=== PATIENT | female | born 1935 | race Caucasian/White ===

== ENCOUNTER 2017-05-03 00:41 | Inpatient (IN) | payer MEDICARE ==
[~2017-05-03] VITALS: Ht 157.5 cm; Wt 70.9 kg
[~2017-05-03 00:41] MED LIST: AMLODIPINE BESY10 MG PO; AMLODIPINE-BEN1 EACH PO; ASPIRIN81 M1 PO; CLONIDINE HCL0.1 MG PO; CLONIDINE HCL0.2 MG PO; DIGOXIN125 MCG PO; GLIMEPIRIDE2 MG PO; HYDROCHLOROTHIA25 MG PO; ISOSORBIDE DINI30 MG PO; JANUVIA100 MG PO; LEVAQUIN250 MG PO; LOSARTAN POTASS25 MG PO; METFORMIN HCL850 MG PO; METOPROLOL TART50 MG PO; PANTOPRAZOLE SO40 MG PO; PRAVASTATIN SOD40 MG PO; SUCRALFATE PO; XARELTO15 MG PO; XOPENEX HFA15 GM INH
[2017-05-03 01:19] LABS: BASOPHILS % 0.3 % (0.0-1.0); EOSINOPHILS # (AUTO) 0.1 (0.0-0.4); EOSINOPHILS % 1.1 % (0.0-6.0); HEMATOCRIT 36.2 % (34.2-44.1); HEMOGLOBIN 11.8 g/dL (12.0-16.0); LYMPHOCYTES # (AUTO) 1.5 (1.0-3.2); LYMPHOCYTES % 20.7 % (18.0-39.1); MEAN CORPUSCULAR HEMOGLOBIN 27.2 pg (28-32); MEAN CORPUSCULAR HGB CONC 32.6 g/dL (31-35); MEAN CORPUSCULAR VOLUME 83.4 fL (81-99); MONOCYTES # (AUTO) 0.8 (0.2-0.8); MONOCYTES % 10.5 % (4.4-11.3); NEUTROPHILS # (AUTO) 4.8 (2.1-6.9); PLATELET COUNT 189 x10e3/uL (140-360); RED BLOOD COUNT 4.34 x10e6/uL (3.6-5.1); RED CELL DISTRIBUTION WIDTH 14.3 % (11.7-14.4)
[2017-05-03] MEDS ORDERED: ISOSORBIDE MONO30 MG PO (01:24)
[2017-05-03] MEDS ORDERED: CLONIDINE HCL0.2 MG PO (01:24)
[2017-05-03] MEDS ORDERED: DIGOXIN125 MCG PO (01:24)
[2017-05-03] MEDS ORDERED: NOVOLOG100 UNITS1 SC (01:24)
[2017-05-03] MEDS ORDERED: LOSARTAN POTASS25 MG PO (01:24)
[2017-05-03] MEDS ORDERED: PANTOPRAZOLE SO40 MG PO (01:24)
[2017-05-03] MEDS ORDERED: PRAVASTATIN SOD40 MG PO (01:24)
[2017-05-03] MEDS ORDERED: GLIMEPIRIDE2 MG PO (01:24)
[2017-05-03] MEDS ORDERED: ASPIRIN EC81 MG PO (01:24)
[2017-05-03] MEDS ORDERED: AMLODIPINE BESY10 MG PO (01:24)
[2017-05-03] MEDS ORDERED: JANUVIA100 MG PO (01:24)
[2017-05-03] MEDS ORDERED: HYDROCHLOROTHIA25 MG PO (01:24)
[2017-05-03] MEDS ORDERED: XARELTO10 MG PO (01:24)
[2017-05-03] MEDS ORDERED: METOPROLOL TART50 MG PO (01:24)
[2017-05-03 01:28] LABS: INR 1.57; PROTHROMBIN TIME 19.6 seconds (11.9-14.5)
[2017-05-03 01:29] LABS: PARTIAL THROMBOPLASTIN TIME 46.6 seconds (23.8-35.5)
[2017-05-03] MEDS ORDERED: ALBUTEROL/IPRATROPIUM 3 ML NEB NEB ONE (01:30)
[2017-05-03 01:40] LABS: CREATINE KINASE MB 1.1 ng/mL (0.00-5.00)
--- NOTE | 2017-05-03 01:44 | Diagnostic Imaging Report ---
EXAM: CHEST SINGLE (PORTABLE), AP 1 view ORDER DATE: 05/03/2017 1:08 AM Time stamp on exam: 0130 hours INDICATION: Shortness of breath, cough COMPARISON: None FINDINGS: LINES/TUBES: Left approach cardiac device. Median sternotomy wires. LUNGS: Vascular congestion and early edema. PLEURA: No effusions or pneumothorax. HEART AND MEDIASTINUM: Cardiomegaly. BONES AND SOFT TISSUES: No acute findings. Questionable hiatal hernia. IMPRESSION: Cardiomegaly, vascular congestion and early edema. Signed by: Dr. Farida Ford M.D. on 05/03/2017 1:41 AM
[2017-05-03 01:47] LABS: ALBUMIN 3.4 g/dL (3.5-5.0); ALBUMIN/GLOBULIN RATIO 0.8 (0.8-2.0); ANION GAP 13.3 mmol/L (8-16); CALCIUM 8.4 mg/dL (8.4-10.2); CREATININE, SERUM 1.25 mg/dL (0.57-1.11); POTASSIUM 3.3 mmol/L (3.5-5.1)
[2017-05-03] MEDS ORDERED: FUROSEMIDE INJ 10 MG/ML 2 ML VIAL IV ONE (02:00)
[2017-05-03] MEDS ORDERED: POTASSIUM CHLORIDE 20MEQ/15ML UDC ONE (02:27)
[2017-05-03] MEDS ORDERED: POTASSIUM CHLORIDE 20MEQ/15ML UDC PO ONE (02:30)
[2017-05-03 02:42] LABS: BILIRUBIN,URINE NEGATIVE (NEGATIVE); KETONES,URINE NEGATIVE (NEGATIVE); LEUKOCYTE ESTERASE ,URINE TRACE (NEGATIVE); NITRITE,URINE NEGATIVE (NEGATIVE); URINE UROBILINOGEN 0.2 mg/dL (0.2 - 1)
[2017-05-03 02:43] LABS: CLARITY,URINE CLEAR (CLEAR); COLOR,URINE YELLOW (YELLOW); PROTEIN,URINE DIPSTICK TRACE (NEGATIVE)
[2017-05-03 02:50] LABS: BACTERIA,URINE FEW /HPF; EPITHELIAL CELLS,URINE FEW /LPF
--- OUTSIDE RECORDS SUMMARY | 2017-05-03 03:12 | XMS REPORT ---
Author Author [facility] Address Unknown Phone Unavailable Care Team Providers Care Assistant Analyst Name Role Phone DEBRA ANDERSON Unavailable Unavailable Problems This patient has no known problems. Allergies, Adverse Reactions, Alerts This patient has no known allergies or adverse reactions. Medications This patient has no known medications. Results Test Description Test Time Test Comments Text Results Atomic Results Result Comments CHEST SINGLE (PORTABLE) [facility] [address] [address] Patient Name: VERONICA KHAN MR #: [id number] : 1935 Age/Sex: 82/F Req #: [id number] Adm Physician: Ordered by: DEBRA ANDERSON MD Report #: [id number] Location: ER Room/Bed: _ Procedure: [id number] DX/CHEST SINGLE (PORTABLE) Exam Date: 05/03/17 Exam Time: 0125 REPORT STATUS: Signed EXAM: CHEST SINGLE (PORTABLE), AP 1 view ORDER DATE: 05/03/2017 1:08 AM Time stamp on exam: 0130 hours INDICATION: Shortness of breath, cough COMPARISON: None FINDINGS: LINES/TUBES: Left approach cardiac device. Median sternotomy wires. LUNGS: Vascular congestion and early edema. PLEURA: No effusions or pneumothorax. HEART AND MEDIASTINUM: Cardiomegaly. BONES AND SOFT TISSUES: No acute findings. Questionable hiatal hernia. IMPRESSION : Cardiomegaly, vascular congestion and early edema. Signed by: Dr. Luis Antonio Ford M.D. on 05/03/2017 1:41 AM Dictated By: LUIS ANTONIO FORD MD 0 Transcribed By: CHELSEY on 05/03/17140 COPY TO: DEBRA ANDERSON MD
[2017-05-03] MEDS: ALBUTEROL/IPRATROPIUM 3 ML NEB NEB SCH ×5 (04:00→23:45)
[2017-05-03] MEDS ORDERED: METHYLPREDNISOLONE SOD SUCC 125 MG/2ML VIAL IV SCH (09:00)
[2017-05-03] MEDS: LISINOPRIL 10 MG TAB PO SCH (10:01)
[2017-05-03] MEDS: FUROSEMIDE INJ 10 MG/ML 4 ML VIAL IV SCH ×2 (10:05→17:08)
[2017-05-03] MEDS: LEVOFLOXACIN 500MG/D5W 100ML 100 ML IV SCH (10:15)
[2017-05-03 16:53] LABS: CREATINE KINASE MB 1.2 ng/mL (0.00-5.00)
--- NOTE | 2017-05-03 20:06 | History and Physical ---
An 82-year-old female comes in with shortness of breath. HISTORY OF PRESENT ILLNESS: Ms. Loya is an 82-year-old lady with a history of congestive heart failure. She was in her usual state of health until one month prior to admission the patient started off with some upper respiratory symptoms. She was seen in the office and was given antibiotic and some steroids, but 2 days prior to admission the patient's dyspnea was moderate. She had quite a lot of wheezing and dyspnea on exertion. She came into the emergency room and was found to have congestive heart failure and bronchitis. PAST MEDICAL HISTORY: History of diabetes mellitus, history of hypertension, history of coronary artery disease, history of hypothyroidism, history of hypertension and history of chronic osteoarthritis. HOME MEDICATIONS: Acetaminophen with codeine, aspirin 81 mg, 75 mg, fenofibrate 67 mg, Lasix 20 mg daily, insulin 52 units at night time, levothyroxine 50 mcg daily, lovastatin 40 mg at night time, meclizine as needed for vertigo, metoprolol 25 mg 1/2 tablet twice a day, temazepam at night time for sleep and tramadol 50 mg q.6 h. p.r.n. 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 SOCIAL HISTORY: No ETOH, no IV drug abuse. She lives by herself and primary caretakers are her children. REVIEW OF SYSTEMS: Negative for chest pain. Positive for shortness of breath. No nausea, vomiting, diarrhea, no constipation, no rectal bleeding, no hematochezia, no hematemesis, no blurry vision. No muscle aches or body aches. No skin problems or rashes. PHYSICAL EXAMINATION VITAL SIGNS: Temperature 97.1, pulse 60, respiratory rate 20, blood pressure 190/79, O2 at 2 liters 98%. GENERAL: The patient is alert and oriented x3. HEENT: Normocephalic, atraumatic. CVS: S1 and S2 normal. Regular rate and rhythm. LUNGS: Positive for bilateral wheezes. ABDOMEN: Nontender, nondistended. EXTREMITIES: Positive for edema. LABORATORY DATA: Initial white count 5.49, hemoglobin 12.5, hematocrit 38.5. Chemistry: Sodium 133, potassium 4.9 with a creatinine of 1.3 for estimated GFR of 50. BNP was 353.2. Coags were normal. Urinalysis was also negative. Serology: Influenza negative. IMAGING: Showed chest x-ray with central pulmonary venous congestion with mild bilateral interstitial edema. ASSESSMENT 1. Congestive heart failure. 2. Bronchitis with failed outpatient treatment. PLAN: Start on IV Lasix. The patient has been given Lasix IV 20 mg twice a day, and will continue with that. Will give her ipratropium and albuterol, which has been restarted. Replaced her home medications and home O2 and also breathing treatment. Further recommendations depending on clinical course. Will continue monitoring the patient and possible discharge in 1-2 days depending on her clinical outcome. Job#: [id number]
[2017-05-03 21:00] VITALS: BP 133/67
[2017-05-03] MEDS ORDERED: DEXTROSE 50% SYRINGE 50 ML IV PRN (21:45)
[2017-05-03 21:46] VITALS: BP 133/67
[2017-05-03] MEDS: INSULIN LISPRO 100 UNIT/1 ML 3ML VIAL SQ SCH ×2 (22:30→23:45)
[2017-05-04] VITALS (7 sets, daily range): BP systolic 104–175; BP diastolic 61–77
[2017-05-04] MEDS: ALBUTEROL/IPRATROPIUM 3 ML NEB NEB SCH ×6 (03:35→23:12)
[2017-05-04] MEDS: INSULIN LISPRO 100 UNIT/1 ML 3ML VIAL SQ SCH ×5 (07:30→21:30)
[2017-05-04] MEDS ORDERED: SODIUM CHLORIDE 0.9% 250ML 250 ML ONE (08:39)
[2017-05-04] MEDS ORDERED: NON-FORMULARY MEDICATION (Aspirin 81 MG) PO SCH (09:00)
[2017-05-04] MEDS: ASPIRIN 81 MG ENTERIC COATED PO SCH (09:58)
[2017-05-04] MEDS: GLIMEPIRIDE 2 MG TAB PO SCH ×2 (09:58→17:12)
[2017-05-04] MEDS: CLONIDINE HCL 0.2 MG TAB PO SCH ×2 (09:58→17:12)
[2017-05-04] MEDS: LOSARTAN POTASSIUM 25 MG TAB PO SCH ×2 (09:58→17:13)
[2017-05-04] MEDS: LEVOFLOXACIN 500MG/D5W 100ML 100 ML IV SCH (09:58)
[2017-05-04] MEDS: FUROSEMIDE INJ 10 MG/ML 4 ML VIAL IV SCH ×2 (09:58→17:12)
[2017-05-04] MEDS: RIVAROXABAN 15 MG TABLET PO SCH (09:59)
[2017-05-04] MEDS: HYDROCHLOROTHIAZIDE 25 MG TAB PO SCH (09:59)
[2017-05-04] MEDS: PANTOPRAZOLE SOD 40 MG TABEC PO SCH ×2 (09:59→17:13)
[2017-05-04] MEDS: LISINOPRIL 10 MG TAB PO SCH (09:59)
[2017-05-04] MEDS: SITAGLIPTIN 100 MG TAB PO SCH (09:59)
[2017-05-04] MEDS: DIGOXIN 0.125 MG TAB PO SCH (10:00)
[2017-05-04] MEDS: AMLODIPINE BESYLATE 10 MG TAB PO SCH (10:00)
[2017-05-04] MEDS: ISOSORBIDE MONONITRATE 30 MG TAB CR PO SCH (10:19)
[2017-05-04] MEDS: METOPROLOL TARTRATE 50 MG TAB PO SCH ×2 (10:20→17:13)
[2017-05-04] MEDS: METRONIDAZOLE 500MG/NS 100ML 100 ML IV SCH ×2 (14:22→21:30)
[2017-05-04] MEDS: SIMVASTATIN 20 MG TAB PO SCH (21:29)
[2017-05-04] MEDS: DICYCLOMINE HCL 10 MG CAP PO PRN (22:37)
[2017-05-05] VITALS: BP 110/73
[2017-05-05] MEDS: ALBUTEROL/IPRATROPIUM 3 ML NEB NEB SCH ×6 (03:15→23:12)
[2017-05-05 04:00] VITALS: BP 131/64
[2017-05-05] MEDS: METRONIDAZOLE 500MG/NS 100ML 100 ML IV SCH ×3 (05:58→21:43)
[2017-05-05 06:10] LABS: BASOPHILS % 0.1 % (0.0-1.0); EOSINOPHILS % 0.1 % (0.0-6.0); HEMATOCRIT 40.1 % (34.2-44.1); HEMOGLOBIN 13.1 g/dL (12.0-16.0); LYMPHOCYTES # (AUTO) 2.1 (1.0-3.2); LYMPHOCYTES % 12.7 % (18.0-39.1); MEAN CORPUSCULAR HEMOGLOBIN 26.8 pg (28-32); MEAN CORPUSCULAR HGB CONC 32.7 g/dL (31-35); MONOCYTES # (AUTO) 1.3 (0.2-0.8); MONOCYTES % 7.8 % (4.4-11.3); NEUTROPHILS # (AUTO) 12.7 (2.1-6.9); NEUTROPHILS % 78.9 % (38.7-80.0); PLATELET COUNT 256 x10e3/uL (140-360); RED BLOOD COUNT 4.89 x10e6/uL (3.6-5.1); RED CELL DISTRIBUTION WIDTH 14.3 % (11.7-14.4)
[2017-05-05 06:38] LABS: ANION GAP 15.4 mmol/L (8-16); CALCIUM 8.7 mg/dL (8.4-10.2); CREATININE, SERUM 1.54 mg/dL (0.57-1.11)
[2017-05-05 06:44] LABS: POTASSIUM 2.4 mmol/L (3.5-5.1)
[2017-05-05] MEDS: INSULIN LISPRO 100 UNIT/1 ML 3ML VIAL SQ SCH ×5 (07:30→21:00)
[2017-05-05] MEDS ORDERED: POTASSIUM CHLORIDE 20 MEQ TAB CR PO STA (07:47)
[2017-05-05 08:00] VITALS: BP 123/62
[2017-05-05] MEDS ORDERED: POTASSIUM CHLORIDE 20MEQ/100ML 200 ML IV ONE (08:00)
[2017-05-05 08:08] VITALS: BP 123/62
[2017-05-05] MEDS: GLIMEPIRIDE 2 MG TAB PO SCH ×2 (09:50→17:10)
[2017-05-05] MEDS: ASPIRIN 81 MG ENTERIC COATED PO SCH (09:50)
[2017-05-05] MEDS: LEVOFLOXACIN 500MG/D5W 100ML 100 ML IV SCH (09:50)
[2017-05-05] MEDS: ISOSORBIDE MONONITRATE 30 MG TAB CR PO SCH (09:51)
[2017-05-05] MEDS: CLONIDINE HCL 0.2 MG TAB PO SCH ×2 (09:51→17:00)
[2017-05-05] MEDS: HYDROCHLOROTHIAZIDE 25 MG TAB PO SCH (09:51)
[2017-05-05] MEDS: LOSARTAN POTASSIUM 25 MG TAB PO SCH ×2 (09:51→17:00)
[2017-05-05] MEDS: SITAGLIPTIN 100 MG TAB PO SCH (09:52)
[2017-05-05] MEDS: FUROSEMIDE 40 MG TAB PO SCH (09:52)
[2017-05-05] MEDS: DIGOXIN 0.125 MG TAB PO SCH (09:52)
[2017-05-05] MEDS: AMLODIPINE BESYLATE 10 MG TAB PO SCH (09:53)
[2017-05-05] MEDS: METOPROLOL TARTRATE 50 MG TAB PO SCH ×2 (09:53→17:00)
[2017-05-05] MEDS: RIVAROXABAN 15 MG TABLET PO SCH (09:54)
[2017-05-05] MEDS: PANTOPRAZOLE SOD 40 MG TABEC PO SCH ×2 (09:54→17:12)
[2017-05-05] MEDS: LISINOPRIL 10 MG TAB PO SCH (09:54)
[2017-05-05] MEDS ORDERED: CHLORASEPTIC SPRAY 177 ML BTL MM PRN (11:30)
[2017-05-05 12:37] VITALS: BP 106/55
[2017-05-05 16:33] VITALS: BP 103/53
[2017-05-05] MEDS: SIMVASTATIN 20 MG TAB PO SCH (21:43)
[2017-05-06] MEDS: ALBUTEROL/IPRATROPIUM 3 ML NEB NEB SCH ×6 (03:05→23:20)
[2017-05-06] MEDS: METRONIDAZOLE 500MG/NS 100ML 100 ML IV SCH ×3 (05:55→21:20)
[2017-05-06 06:06] LABS: BASOPHILS % 0.2 % (0.0-1.0); EOSINOPHILS % 0.1 % (0.0-6.0); HEMATOCRIT 37.5 % (34.2-44.1); HEMOGLOBIN 12.1 g/dL (12.0-16.0); LYMPHOCYTES # (AUTO) 1.3 (1.0-3.2); LYMPHOCYTES % 10.9 % (18.0-39.1); MEAN CORPUSCULAR HEMOGLOBIN 26.9 pg (28-32); MEAN CORPUSCULAR HGB CONC 32.3 g/dL (31-35); MEAN CORPUSCULAR VOLUME 83.5 fL (81-99); MONOCYTES % 8.1 % (4.4-11.3); NEUTROPHILS # (AUTO) 9.6 (2.1-6.9); NEUTROPHILS % 80.1 % (38.7-80.0); PLATELET COUNT 245 x10e3/uL (140-360); RED BLOOD COUNT 4.49 x10e6/uL (3.6-5.1); RED CELL DISTRIBUTION WIDTH 14.5 % (11.7-14.4)
[2017-05-06 06:35] LABS: ANION GAP 16.9 mmol/L (8-16); CALCIUM 8.7 mg/dL (8.4-10.2); CREATININE, SERUM 1.68 mg/dL (0.57-1.11)
[2017-05-06 06:49] LABS: POTASSIUM 2.9 mmol/L (3.5-5.1)
[2017-05-06] MEDS ORDERED: POTASSIUM CHLORIDE 20MEQ/100ML 200 ML IV ONE (07:15)
[2017-05-06] MEDS ORDERED: POTASSIUM CHLORIDE 20 MEQ TAB CR PO NR (07:30)
[2017-05-06] MEDS: INSULIN LISPRO 100 UNIT/1 ML 3ML VIAL SQ SCH ×5 (07:30→21:00)
[2017-05-06] MEDS ORDERED: POTASSIUM CHLORIDE 40 MEQ in SODIUM CHLORIDE 0.9% 250ML 250 ML IV ONE (08:00)
[2017-05-06 08:14] VITALS: BP 119/64
[2017-05-06] MEDS: DICYCLOMINE HCL 10 MG CAP PO PRN ×2 (08:17→16:42)
[2017-05-06] MEDS: LEVOFLOXACIN 500MG/D5W 100ML 100 ML IV SCH (08:17)
[2017-05-06 08:32] VITALS: BP 125/58
[2017-05-06] MEDS: DIGOXIN 0.125 MG TAB PO SCH (08:46)
[2017-05-06] MEDS: CLONIDINE HCL 0.2 MG TAB PO SCH ×2 (08:46→16:22)
[2017-05-06] MEDS: HYDROCHLOROTHIAZIDE 25 MG TAB PO SCH (08:46)
[2017-05-06] MEDS: AMLODIPINE BESYLATE 10 MG TAB PO SCH (08:46)
[2017-05-06] MEDS: ASPIRIN 81 MG ENTERIC COATED PO SCH (08:46)
[2017-05-06] MEDS: ISOSORBIDE MONONITRATE 30 MG TAB CR PO SCH (08:47)
[2017-05-06] MEDS: METOPROLOL TARTRATE 50 MG TAB PO SCH ×2 (08:47→16:42)
[2017-05-06] MEDS: PANTOPRAZOLE SOD 40 MG TABEC PO SCH ×2 (08:47→16:42)
[2017-05-06] MEDS: LOSARTAN POTASSIUM 25 MG TAB PO SCH ×2 (08:47→16:22)
[2017-05-06] MEDS: GLIMEPIRIDE 2 MG TAB PO SCH ×2 (08:48→16:42)
[2017-05-06] MEDS: FUROSEMIDE 40 MG TAB PO SCH (08:48)
[2017-05-06] MEDS: SITAGLIPTIN 100 MG TAB PO SCH (08:48)
[2017-05-06] MEDS: LISINOPRIL 10 MG TAB PO SCH (08:48)
[2017-05-06] MEDS: RIVAROXABAN 15 MG TABLET PO SCH (08:48)
[2017-05-06] MEDS ORDERED: SODIUM CHLORIDE 0.9% 250ML 250 ML ONE (09:04)
[2017-05-06] MEDS ORDERED: DIATRIZOATE MEGL/DIATRIZOA SOD 30 ML BTL PO ONE (09:13)
[2017-05-06] MEDS: ONDANSETRON HCL INJ 2 MG/ML VIAL IV PRN (09:27)
--- NOTE | 2017-05-06 11:06 | Diagnostic Imaging Report ---
PROCEDURE: CT ABDOMEN AND PELVIS WITHOUT CONTRAST COMPARISON:None. INDICATIONS:Left upper abdominal pain. TECHNIQUE: Routine protocol Volumetric CT abdomen without administration of 900 mL positive enteric contrast. No intravenous contrast. Multiplanar reformatted images. DLP: 299.85 FINDINGS: Dependent right lower lobe airspace opacity with mild regional bronchiectasis. Subpleural 0.7 cm left lower lobe nodule (image 5, series 2). Cardiomegaly without pericardial effusion. Liver: Riley's lobe. 2 cm low-attenuation nodule in the left lobe suggesting a cyst. Gallbladder: Normal Pancreas: Mild diffuse atrophy; otherwise, normal Spleen: Normal Adrenal glands: Normal Kidneys: Small vascular calcification; otherwise, normal. Ureters and urinary bladder: Normal. Indwelling Rosario catheter with incomplete bladder evacuation and a large volume of air. Uterus and adnexa: Hysterectomy Bowel: Normal caliber of. Extensive sigmoid and descending colon diverticulosis. Peritoneum: Normal Vasculature: Diffuse atherosclerosis and arteriosclerosis. Grossly normal caliber. Splenic artery embolization coils, presumably within a small aneurysm. Lymph nodes: Normal Skeleton: Intact. Multilevel degenerative disc disease of the thoracolumbar spine with scoliosis. Severe multilevel facet arthropathy. Soft tissues: Small fat-containing inguinal hernias. Multiple calcified granulomas in the superficial fat of the buttocks.. CONCLUSION: 1. Extensive diverticulosis without evidence of diverticulitis. 2. Incomplete urinary bladder evacuation despite indwelling Rosario catheter. 3. No conspicuous etiology for left upper quadrant pain. 4. Dependent right lower lobe airspace opacity with mild bronchiectasis. Correlate for recurrent aspiration and/or pneumonia. 5. Study is limited by lack of intravenous contrast. Dictated by: Jerome Orozco M.D. on 05/06/2017 at 11:15 Electronically approved by: Jerome Orozco M.D. on 05/06/2017 at 11:15
[2017-05-06 12:16] VITALS: BP 119/64
[2017-05-06 16:24] VITALS: BP 120/61
[2017-05-06 20:00] VITALS: BP 113/58
[2017-05-06] MEDS: SIMVASTATIN 20 MG TAB PO SCH (21:19)
[2017-05-07] VITALS (7 sets, daily range): BP systolic 107–127; BP diastolic 57–70
[2017-05-07] MEDS: ALBUTEROL/IPRATROPIUM 3 ML NEB NEB SCH ×6 (02:05→23:20)
[2017-05-07 06:20] LABS: BASOPHILS % 0.2 % (0.0-1.0); EOSINOPHILS % 0.2 % (0.0-6.0); HEMATOCRIT 38.6 % (34.2-44.1); HEMOGLOBIN 12.6 g/dL (12.0-16.0); LYMPHOCYTES # (AUTO) 1.2 (1.0-3.2); LYMPHOCYTES % 8.7 % (18.0-39.1); MEAN CORPUSCULAR HGB CONC 32.6 g/dL (31-35); MEAN CORPUSCULAR VOLUME 82.8 fL (81-99); MONOCYTES # (AUTO) 1.5 (0.2-0.8); MONOCYTES % 11.5 % (4.4-11.3); NEUTROPHILS # (AUTO) 10.3 (2.1-6.9); NEUTROPHILS % 77.3 % (38.7-80.0); PLATELET COUNT 280 x10e3/uL (140-360); RED BLOOD COUNT 4.66 x10e6/uL (3.6-5.1); RED CELL DISTRIBUTION WIDTH 14.4 % (11.7-14.4)
[2017-05-07] MEDS: METRONIDAZOLE 500MG/NS 100ML 100 ML IV SCH (06:20)
[2017-05-07 06:44] LABS: ANION GAP 14.1 mmol/L (8-16); CALCIUM 8.4 mg/dL (8.4-10.2); CREATININE, SERUM 1.36 mg/dL (0.57-1.11); POTASSIUM 3.1 mmol/L (3.5-5.1)
[2017-05-07] MEDS: INSULIN LISPRO 100 UNIT/1 ML 3ML VIAL SQ SCH ×5 (07:30→21:00)
[2017-05-07 07:31] LABS: ANISOCYTOSIS SLIGHT; LYMPHOCYTES % (MANUAL) 9 % (19-48); MONOCYTES % (MANUAL) 9 % (3.4-9.0); NEUTROPHILS % (MANUAL) 82 % (40-74); PLATELET ESTIMATE ADEQUATE; PLATELET MORPHOLOGY COMMENT NORMAL; RBC MORPHOLOGY COMMENT NORMAL
--- NOTE | 2017-05-07 07:52 | Diagnostic Imaging Report ---
PROCEDURE: A single AP view of the chest. COMPARISON: Portable chest 03/22/2015. INDICATIONS: SHORTNESS OF BREATH. WEAKNESS, CHF FINDINGS: Lines/tubes: Left chest cardiac device with leads projecting over the expected regions of the right atrium and ventricle. Lungs: The lungs are well inflated and clear. There is no evidence of pneumonia or pulmonary edema. Pleura: There is no pleural effusion or pneumothorax. Heart and mediastinum: The heart and the mediastinum are unremarkable. Bones: No acute bony abnormality. Median sternotomy wires. Healed fracture of the left posterior eighth rib. Transection of the left posterior ninth rib. IMPRESSION: No acute radiographic abnormality. Dictated by: Mani Guerrero M.D. on 05/07/2017 at 8:02 Electronically approved by: Mani Guerrero M.D. on 05/07/2017 at 8:02
[2017-05-07] MEDS: ONDANSETRON HCL INJ 2 MG/ML VIAL IV PRN ×2 (08:27→12:19)
[2017-05-07] MEDS: AMLODIPINE BESYLATE 10 MG TAB PO SCH (08:28)
[2017-05-07] MEDS: LISINOPRIL 10 MG TAB PO SCH (08:28)
[2017-05-07] MEDS: LEVOFLOXACIN 500MG/D5W 100ML 100 ML IV SCH (08:28)
[2017-05-07] MEDS: ASPIRIN 81 MG ENTERIC COATED PO SCH (08:29)
[2017-05-07] MEDS: HYDROCHLOROTHIAZIDE 25 MG TAB PO SCH (08:29)
[2017-05-07] MEDS: LOSARTAN POTASSIUM 25 MG TAB PO SCH ×2 (08:29→16:19)
[2017-05-07] MEDS: ISOSORBIDE MONONITRATE 30 MG TAB CR PO SCH (08:29)
[2017-05-07] MEDS: DIGOXIN 0.125 MG TAB PO SCH (08:29)
[2017-05-07] MEDS: CLONIDINE HCL 0.2 MG TAB PO SCH ×2 (08:29→16:18)
[2017-05-07] MEDS: FUROSEMIDE 40 MG TAB PO SCH (08:30)
[2017-05-07] MEDS: METOPROLOL TARTRATE 50 MG TAB PO SCH ×2 (08:30→16:19)
[2017-05-07] MEDS: PANTOPRAZOLE SOD 40 MG TABEC PO SCH ×2 (08:30→16:58)
[2017-05-07] MEDS: SITAGLIPTIN 100 MG TAB PO SCH (08:30)
[2017-05-07] MEDS: RIVAROXABAN 15 MG TABLET PO SCH (08:30)
[2017-05-07] MEDS: GLIMEPIRIDE 2 MG TAB PO SCH ×2 (08:30→16:58)
[2017-05-07] MEDS ORDERED: POTASSIUM CHLORIDE 20 MEQ TAB CR PO SCH ×2 (09:00→11:00)
[2017-05-07] MEDS ORDERED: POTASSIUM CHLORIDE 20 MEQ TAB CR PO ONE (12:00)
[2017-05-07] MEDS: NYSTATIN SUSPENSION 5 ML UDC PO SCH ×2 (12:14→16:58)
[2017-05-07] MEDS: MAALOX/LIDOCAINE/BENADRYL 120 ML BTL PO SCH ×2 (12:14→16:58)
[2017-05-07] MEDS: SIMVASTATIN 20 MG TAB PO SCH (21:00)
[2017-05-07] MEDS ORDERED: INSULIN DETEMIR 100 UNIT/ML PEN SQ SCH (21:00)
[2017-05-08 01:02] VITALS: BP 114/67
[2017-05-08] MEDS: ALBUTEROL/IPRATROPIUM 3 ML NEB NEB SCH ×3 (03:00→14:11)
[2017-05-08] MEDS: MAALOX/LIDOCAINE/BENADRYL 120 ML BTL PO SCH ×3 (05:59→11:58)
[2017-05-08] MEDS: NYSTATIN SUSPENSION 5 ML UDC PO SCH ×3 (05:59→11:58)
[2017-05-08 06:19] LABS: BASOPHILS # (AUTO) 0.1 (0.0-0.1); BASOPHILS % 0.4 % (0.0-1.0); EOSINOPHILS # (AUTO) 0.1 (0.0-0.4); EOSINOPHILS % 0.3 % (0.0-6.0); HEMATOCRIT 40.4 % (34.2-44.1); LYMPHOCYTES # (AUTO) 1.6 (1.0-3.2); LYMPHOCYTES % 10.5 % (18.0-39.1); MEAN CORPUSCULAR HGB CONC 32.2 g/dL (31-35); MEAN CORPUSCULAR VOLUME 83.8 fL (81-99); MONOCYTES % 13.3 % (4.4-11.3); NEUTROPHILS # (AUTO) 10.9 (2.1-6.9); NEUTROPHILS % 73.7 % (38.7-80.0); PLATELET COUNT 327 x10e3/uL (140-360); RED BLOOD COUNT 4.82 x10e6/uL (3.6-5.1); RED CELL DISTRIBUTION WIDTH 14.5 % (11.7-14.4)
[2017-05-08 06:38] LABS: ANION GAP 14.6 mmol/L (8-16); CALCIUM 8.8 mg/dL (8.4-10.2); CREATININE, SERUM 1.48 mg/dL (0.57-1.11); POTASSIUM 3.6 mmol/L (3.5-5.1)
[2017-05-08 06:50] VITALS: BP 129/67
[2017-05-08 07:11] LABS: ANISOCYTOSIS SLIGHT; LYMPHOCYTES % (MANUAL) 13 % (19-48); METAMYELOCYTES % (MANUAL) 1 % (0-0); MONOCYTES % (MANUAL) 8 % (3.4-9.0); NEUTROPHILS % (MANUAL) 76 % (40-74); PLATELET ESTIMATE ADEQUATE; PLATELET MORPHOLOGY COMMENT NORMAL; RBC MORPHOLOGY COMMENT NORMAL
[2017-05-08] MEDS: INSULIN LISPRO 100 UNIT/1 ML 3ML VIAL SQ SCH ×2 (07:30→11:59)
[2017-05-08 08:00] VITALS: BP 131/63
[2017-05-08 08:30] VITALS: BP 131/63
[2017-05-08] MEDS: GLIMEPIRIDE 2 MG TAB PO SCH (08:47)
[2017-05-08] MEDS: LEVOFLOXACIN 500MG/D5W 100ML 100 ML IV SCH (08:48)
[2017-05-08] MEDS: CLONIDINE HCL 0.2 MG TAB PO SCH (08:48)
[2017-05-08] MEDS: SITAGLIPTIN 100 MG TAB PO SCH (08:48)
[2017-05-08] MEDS: ISOSORBIDE MONONITRATE 30 MG TAB CR PO SCH (08:48)
[2017-05-08] MEDS: ASPIRIN 81 MG ENTERIC COATED PO SCH (08:48)
[2017-05-08] MEDS: LOSARTAN POTASSIUM 25 MG TAB PO SCH (08:48)
[2017-05-08] MEDS: HYDROCHLOROTHIAZIDE 25 MG TAB PO SCH (08:48)
[2017-05-08] MEDS: FUROSEMIDE 40 MG TAB PO SCH (08:49)
[2017-05-08] MEDS: AMLODIPINE BESYLATE 10 MG TAB PO SCH (08:49)
[2017-05-08] MEDS: DIGOXIN 0.125 MG TAB PO SCH (08:49)
[2017-05-08] MEDS: METOPROLOL TARTRATE 50 MG TAB PO SCH (08:49)
[2017-05-08] MEDS: PANTOPRAZOLE SOD 40 MG TABEC PO SCH (08:50)
[2017-05-08] MEDS: LISINOPRIL 10 MG TAB PO SCH (08:50)
[2017-05-08] MEDS: RIVAROXABAN 15 MG TABLET PO SCH (08:50)
[2017-05-08 12:00] VITALS: BP 100/60
== END 2017-05-08 16:45 | DRG 202 ==
LOC: EDBD → ER 00:41 → MERGE 03:09 → ERHOLD 03:09 → MED/SURG2 20:19 → ERHOLD 20:19 → MED/SURG2 20:20
PROVIDERS: ADMIT Family Medicine; ATTEND Family Medicine
DX: J20.9 Acute bronchitis, unspecified (principal); I50.23 Acute on chronic systolic (congestive) heart failure; E11.9 Type 2 diabetes mellitus without complications; I48.91 Unspecified atrial fibrillation; I11.0 Hypertensive heart disease with heart failure; E87.6 Hypokalemia; I25.10 Atherosclerotic heart disease of native coronary artery without angina pectoris; Z95.1 Presence of aortocoronary bypass graft; E03.9 Hypothyroidism, unspecified; M19.90 Unspecified osteoarthritis, unspecified site; K57.90 Diverticulosis of intestine, part unspecified, without perforation or abscess without bleeding; R53.81 Other malaise; E78.5 Hyperlipidemia, unspecified; Z95.0 Presence of cardiac pacemaker; Z28.21 Immunization not carried out because of patient refusal; I25.2 Old myocardial infarction; Z86.73 Personal history of transient ischemic attack (TIA), and cerebral infarction without residual deficits; Z79.82 Long term (current) use of aspirin; Z79.4 Long term (current) use of insulin; Z79.01 Long term (current) use of anticoagulants
CPT/HCPCS: 36415; 71045; 74176; 80048; 80053; 80162; 81001; 82550; 82553; 82948; 83880; 84484; 85025; 85610; 85730; 87086; 87400; 93005; 94640; 94667; 99284; J1940; J1956; J2405; J2930; J3480; J7050